=== PATIENT | female | born 1990 | race African-American/Black ===

== ENCOUNTER 2018-09-21 14:10 | Emergency (ER) | payer MEDICAID, OTHER ==
[~2018-09-21] VITALS: Ht 167.6 cm; Wt 101.0 kg
[2018-09-21 16:07] LABS: BASOPHILS % 0.4 % (0.0-2.0); EOSINOPHILS % 4.7 % (0.0-5.0); HEMATOCRIT. 40.5 % (36.0-48.0); HEMOGLOBIN. 13.6 g/dL (12.0-16.0); LYMPHOCYTES % 36.7 % (20.0-50.0); MEAN CORPUSCULAR HEMOGLOBIN 31.6 pg (28.0-32.0); MEAN PLATELET VOLUME 8.3 fl (7.4-10.4); NEUTROPHILS % 50.2 % (40.0-76.0); PLATELET 226 x1000/uL (130-400); RED BLOOD CELL COUNT 4.31 mill/uL (4.2-5.4); RED CELL DISTRIBUTION WIDTH 12.9 % (11.6-14.6)
[2018-09-21 16:13] LABS: CHLORIDE 108 mEq/L (98-107)
[2018-09-21 16:30] LABS: HCG SCREEN NEGATIVE
[2018-09-21 16:57] LABS: CLARITY URINE CLEAR (CLEAR); COLOR URINE YELLOW (YELLOW); KETONES URINE NEGATIVE (NEGATIVE); LEUKOCYTE ESTERASE URINE TRACE (NEGATIVE); NITRITE URINE NEGATIVE (NEGATIVE); OCCULT BLOOD URINE NEGATIVE (NEGATIVE); PH URINE 6.5 (4.5-8.0); PROTEIN URINE NEGATIVE (NEGATIVE); SPECIFIC GRAVITY URINE 1.021 (1.005-1.030); UROBILINOGEN URINE 0.2 E.U./dL (0.2-1.0)
[2018-09-21 18:00] VITALS: BP 131/69
== END 2018-09-21 18:00 | disposition home or self-care (01) ==
LOC: ER 14:10
DX: R60.0 Localized edema (principal); R03.0 Elevated blood-pressure reading, without diagnosis of hypertension; F17.210 Nicotine dependence, cigarettes, uncomplicated; Z71.6 Tobacco abuse counseling
CPT/HCPCS: 36415; 81025; 83880; 84484; 84703; 85651; 93970; 99284; 99406